=== PATIENT | male | born 2000 | race Caucasian/White ===

== ENCOUNTER 2021-06-29 12:24 | Emergency (ER) | payer SELFPAY ==
[~2021-06-29] VITALS: Ht 182.9 cm; Wt 71.2 kg
[2021-06-29 12:32] VITALS: BP 138/70
--- NOTE | 2021-06-29 12:46 | NUR ---
DR LEE AT BEDSIDE
--- NOTE | 2021-06-29 13:01 | NUR ---
21 y/o male biba from [facility], pt states he felt very weak and near syncopal with blurry vision. denies fall or loc. pt has splint on right leg due to fx. pt states he injured extremity during rugby sport, denies any head/neck, loc or syncope. pt states he tested positive for covid 3 weeks ago. enroute pt glucose was 132, iv 18g established on right ac with 250ml of ns 0.9. pmh: denies med: acetaminphen nka
[2021-06-29] MEDS: NACL 0.9% 1,000 ML IV ONE (13:10)
--- NOTE | 2021-06-29 13:12 | NUR ---
pt unable to stand or bear weight on right extremity for orthostatic vitals
[2021-06-29 13:25] LABS: BASOPHILS % (AUTO) 0.2 % (0.0-2.0); EOSINOPHILS % (AUTO) 0.2 % (0.0-4.0); HEMATOCRIT 40.6 % (36-52); LYMPHOCYTES # (AUTO) 0.8 K/uL (2.0-11.5); LYMPHOCYTES % (AUTO) 10.4 % (20.5-51.1); MEAN CORPUSCULAR HEMOGLOBIN 32 pg (27-31); MEAN CORPUSCULAR HGB CONC 34 g/dL (33-37); MEAN CORPUSCULAR VOLUME 91.6 fL (80-94); MONOCYTES # (AUTO) 0.4 K/uL (0.8-1.0); MONOCYTES % (AUTO) 4.8 % (1.7-9.3); NEUTROPHILS # (AUTO) 6.4 K/uL (1.8-7.7); NEUTROPHILS % (AUTO) 84.4 % (42.2-75.2); PLATELET COUNT (AUTO) 158 K/uL (140-450); RED BLOOD CELL COUNT(AUTO) 4.43 MIL/uL (4.20-6.10); RED CELL DISTRIBUTION WIDTH 13.1 % (11.6-13.7); WHITE BLOOD COUNT (AUTO) 7.6 K/uL (4.8-10.8)
--- NOTE | 2021-06-29 13:40 | NUR ---
ermd in room discussing risk and benefits, pt would like to leave [facility] to go to ortho appointment.
[2021-06-29 13:47] VITALS: BP 144/74
--- NOTE | 2021-06-29 13:47 | NUR ---
Patient does not wish to proceed with medical care recommended by vicki waterman. Patient given information related to possible complications, up to and including , which could occur as a result of leaving hospital at this time. Patient verbalizes understanding of risks involved leaving against medical advice. Patient has signed AMA form.
[2021-06-29 13:51] LABS: CARBON DIOXIDE 27.8 mmol/L (21-32); POTASSIUM 4.8 mmol/L (3.5-5.1)
--- NOTE | 2021-06-29 14:02 | NUR ---
crutches given with teaching on proper use, pt demonstrated one on one demo back. pink paper given to pt.
== END 2021-06-29 13:47 | disposition left against medical advice (07) ==
LOC: MED 12:24
DX: R55 Syncope and collapse (principal); H53.8 Other visual disturbances
CPT/HCPCS: 36415; 80048; 85025; 85379; 93005; 96360; 99284; J7030